=== PATIENT | female | born 1970 | race Caucasian/White ===

== ENCOUNTER 2016-04-06 17:34 | Emergency (ER) | payer OTHER ==
[~2016-04-06] VITALS: Ht 168.9 cm; Wt 108.5 kg
[~2016-04-06 17:34] MED LIST: DILAUDID2 MG PO; FLEXERIL10 MG PO; KEFLEX500 MG PO; NAPROSYN500 MG PO; NORCO 7.5/321 TABLET PO; PERCOCET 5/31 TABLET PO; PROMETHAZINE HC25 M1 PO; ~No Medications
[2016-04-06 17:45] VITALS: BP 130/100
[2016-04-06 18:06] LABS: HEMATOCRIT 42.5 % (36.0-46.0); MCH 29.8 PG (29.0-34.0); MCHC 35.5 G/DL (30.0-36.0); MCV 83.8 FL (83-99); MEAN PLAT.VOLUME 9.1 uM^3 (9.5-12.4); PLATELET COUNT 244 K/uL (156-360); RBC DIS.WIDTH-CV 13.3 % (11.8-14.6); RBC DIS.WIDTH-SD 39.9 % (39-53); RED BLOOD COUNT 5.07 M/uL (3.80-5.20); WHITE BLOOD COUNT 11.5 K/uL (4.1-10.2)
[2016-04-06 18:18] LABS: CHLORIDE 105 mEq/L (99-109); POTASSIUM 3.4 mEq/L (3.7-5.4); SODIUM 136 mEq/L (136-147)
[2016-04-06 18:19] LABS: GLUCOSE 119 mg/dL (70-99)
[2016-04-06 18:21] LABS: ANION GAP 10 MEQ/L (2-14)
[2016-04-06 18:23] LABS: GFR ESTIMATE (CALCULATED) > 59 mL/min/
[2016-04-06 18:24] LABS: UREA NITROGEN (BUN) 12 mg/dL (9-23)
[2016-04-06 18:26] LABS: TROP-I INTERPRETATION NEGATIVE; TROPONIN-I < 0.01 ng/mL (0.0-0.30)
== END 2016-04-06 20:47 | disposition left against medical advice (07) ==
LOC: EME 17:34
DX: R07.9 Chest pain, unspecified (principal); Z53.21 Procedure and treatment not carried out due to patient leaving prior to being seen by health care provider
CPT/HCPCS: 71020; 80048; 84484; 85027; 93005